=== PATIENT | female | born 1950 | race Caucasian/White ===

== ENCOUNTER → 2023-12-01 14:10 | Outpatient (CLI) | payer MEDICARE, SELFPAY | PROVIDERS: Visit Provider Surgery | DX: K94.03 Colostomy malfunction (principal); C56.9 Malignant neoplasm of unspecified ovary | CPT/HCPCS: 99203; 99213 ==

== ENCOUNTER → 2023-12-08 14:12 | Outpatient (CLI) | payer MEDICARE, SELFPAY | LOC: WC 14:13 | PROVIDERS: Visit Provider Surgery | DX: Z93.3 Colostomy status (principal) | CPT/HCPCS: 99213 ==

== ENCOUNTER → 2023-12-22 13:21 | Outpatient (CLI) | payer MEDICARE, SELFPAY | PROVIDERS: Visit Provider Surgery | DX: Z93.3 Colostomy status (principal) | CPT/HCPCS: 99213 ==